=== PATIENT | female | born 1980 | race Caucasian/White ===

== ENCOUNTER → 2016-11-01 | Outpatient (CLI) | payer OTHER | LOC: FIMAGING 09:44 | PROVIDERS: ATTEND Advanced Practice Midwife | DX: O36.8930 Maternal care for other specified fetal problems, third trimester, not applicable or unspecified (principal); Z3A.32 32 weeks gestation of pregnancy ==

== ENCOUNTER 2018-08-11 09:38 | Emergency (ER) | payer OTHER ==
--- NOTE | 2018-08-11 09:46 | EDPHY ---
H & P Time Seen by Provider: 08/11/18 09:42 HPI/ROS: Chief complaint. Chest pain HPI. Patient is a 38-year-old female with chest pain that began during the night while she was sleeping. She describes as central in her chest without radiation. Discomfort is described as both sharp and dull. No cough or fever. Her symptoms are worse with deep breathing. No unusual activity or injury. No unusual leg pain or swelling. No recent travel. No history heart or lung disease. No abdominal pain. She feels slightly short of breath and anxious. ROS 10 systems were reviewed and negative with the exception of the elements mentioned in the history of present illness Past Medical/Surgical History: Appendectomy Social History: , nonsmoker, no alcohol Physical Exam: General Appearance: Alert well-developed female mild distress vital signs are stable Eyes: Pupils equal and round no pallor or injection. ENT, Mouth: Mucous membranes are moist. Respiratory: There are no retractions, lungs are clear to auscultation. Cardiovascular: Regular rate and rhythm. Gastrointestinal: Abdomen is soft and nontender, no masses, bowel sounds normal. Neurological: Awake and alert, sensory and motor exams grossly normal. Skin: Warm and dry, no rashes. Musculoskeletal: Neck is supple nontender. Extremities symmetrical, full range of motion. Psychiatric: Patient is oriented X 3, there is no agitation. Constitutional: Initial Vital Signs Temperature (C) 36.3 C 08/11/18 09:45 Heart Rate 68 08/11/18 09:45 Respiratory Rate 14 08/11/18 09:45 Blood Pressure 146/95 H 08/11/18 09:45 O2 Sat (%) 100 08/11/18 09:45 O2 Delivery Mode Room Air Allergies/Adverse Reactions: No Known Allergies Allergy (Unverified 08/11/18 09:44) Home Medications: Medication Instructions Recorded NK [No Known Home Meds] 08/11/18 Medical Decision Making - Diagnostics EKG Interpretation: EKG is interpreted by me showing normal sinus rhythm with normal interval and axis. QRS shows slight ST elevation in leads V1 and V2. Possible evidence for Brugada syndrome by EKG. Otherwise there is no significant ST elevation or depression. No arrhythmia. The rate is 74. Imaging Results: Imaging Impressions Chest X-Ray 08/11/18 09:45 Impression: Negative portable chest. One-view chest x-ray interpreted by me is normal Procedures: IV normal saline, monitor ED Course/Re-evaluation: I consulted and discussed the case with Dr. Mora for Cardiology. He and I reviewed the EKG together. He does not think this represents significant evidence for Brugada syndrome. He does recommend follow-up in their office. On re-evaluation patient is stable. She and I discussed imaging, EKG, lab evaluation. We discussed treatment plan including criteria for return and recommendation for follow-up and further evaluation. She expresses understanding and agreement Differential Diagnosis: I considered acute coronary syndrome, pulmonary embolus, pneumonia pneumothorax. I considered Rocky got a syndrome. The patient has had no history of syncope and there is no family history of sudden . She also does not report any sense of palpitations or irregular heartbeats. The patient feels that this is more stress and anxiety. - Data Points Laboratory Results: 08/11/18 08/11/18 10:03 09:58 POC Sodium 142 mEq/L mEq/L (135-145) POC Potassium 3.6 mEq/L mEq/L (3.3-5.0) POC Chloride 102.0 mEq/L mEq/L (97-110) POC Total CO2 26 mEq/L mEq/L (22-31) POC BUN 11 mg/dL mg/dL (7-23) POC Creatinine 1.1 mg/dL H mg/dL (0.6-1.0) POC Glucose 74 mg/dL mg/dL (70-100) POC Calcium 9.4 mg/dL mg/dL (8.5-10.4) POC Troponin I 0.00 ng/mL ng/mL (0.00-0.08) Point of Care Test Results: CBC CBC Collection Date 08/11/18 CBC Collection Time 09:55 WBC 5.6 RBC 4.61 HGB 14.0 HCT 41.5 PLT 293 Neut # 2.8 Neut 48.4 LYMPH # 2.3 LYMPH 41.8 Other WBC # 0.5 Other WBC 9.8 MCV 90.0 Chemistry 08/11/18 08/11/18 10:03 09:58 POC Sodium 142 mEq/L mEq/L (135-145) POC Potassium 3.6 mEq/L mEq/L (3.3-5.0) POC Chloride 102.0 mEq/L mEq/L (97-110) POC Total CO2 26 mEq/L mEq/L (22-31) POC BUN 11 mg/dL mg/dL (7-23) POC Creatinine 1.1 mg/dL H mg/dL (0.6-1.0) POC Glucose 74 mg/dL mg/dL (70-100) POC Calcium 9.4 mg/dL mg/dL (8.5-10.4) POC Troponin I 0.00 ng/mL ng/mL (0.00-0.08) D-Dimer D-Dimer Collection Date 08/11/18 D-Dimer Collection Time 09:55 D-Dimer (ng/ml) <100 Departure - Departure Disposition: Home, Routine, Self-Care Clinical Impression: Chest pain Qualifiers: Chest pain type: unspecified Qualified Code(s): R07.9 - Chest pain, unspecified Condition: Good Instructions: Chest Pain (ED) Additional Instructions: Activity as tolerated. May use Tylenol 650 mg every 4-6 hours, ibuprofen 600 mg every 6 hr for discomfort Return for worsening chest discomfort or trouble breathing Follow-up with Cardiology as we discussed Referrals: Marilee Guajardo [Primary Care Provider] - As per Instructions Ronnie Mora MD [Medical Doctor] - 2-3 days, call for appt.
[2018-08-11 12:32] VITALS: BP 114/64
--- NOTE | 2018-08-15 05:48 | CPEKG ---
Test Reason : CP Blood Pressure : / mmHG Vent. Rate : 074 BPM Atrial Rate : 073 BPM P-R Int : 163 ms QRS Dur : 105 ms QT Int : 375 ms P-R-T Axes : 073 077 039 degrees QTc Int : 416 ms Sinus rhythm Confirmed by Red Marie ([id number]) on 08/15/2018 5:48:17 AM Referred By: Confirmed By:Red Marie
== END 2018-08-11 11:30 | disposition home or self-care (01) ==
LOC: CED 09:38
DX: R07.9 Chest pain, unspecified (principal)
CPT/HCPCS: 71045-PO; 80048-PO; 84484-PO